=== PATIENT | female | born 1950 | race Caucasian/White ===

== ENCOUNTER 2018-06-23 13:49 | Outpatient (CLI) | payer MEDICARE ==
--- NOTE | 2018-06-23 15:01 | RAD ---
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 Baseline evaluation of lungs prior to new medic ation use. FINDINGS: There is no air space density, pulmonary edema, pleural effusion, pneumothorax, or cardiomegaly. IMPRESSION: No acute cardiopulmonary findings. jn POS: [facility]
--- NOTE | 2018-06-23 15:24 | BD ---
DEXA BONE DENSITOMETRY: (Dual energy X-ray Absorptiometry) DATE: 06/23/2018. HISTORY: A 67-year-old postmenopausal white female for baseline, age-related osteoporosis screening examinatio n. Height 67 inches. Weight 230 pounds. Age of menopause 39 years. COMPARISON: None available. FINDINGS: The bone mineral density (BMD) is given in grams per square centimeter (g/cm2): LUMBAR SPINE: BMD(g/cm2) T-score Z-score L1: 1.199 1.9 3.7 L2: 1.171 1.3 3.2 L3: 1.162 0.7 2.9 L4: 1.030 -0.3 1.9 Total: 1.141 0.9 2.9 HIP: Femoral neck: 0.894 0.4 2.2 Total: 1.090 1.2 2.7 IMPRESSION: 1) The mean bone mineral density of the lumbar spine is normal. Fracture risk is not increased. 2) The bone mineral density of the femoral neck is normal. Fracture risk is not increased. JN [place] POS: [facility]
== END 2018-06-23 13:50 | disposition home or self-care (01) ==
LOC: BICMAMMO 13:49
PROVIDERS: ATTEND Family Medicine
DX: Z12.31 Encounter for screening mammogram for malignant neoplasm of breast (principal); M81.0 Age-related osteoporosis without current pathological fracture; L40.50 Arthropathic psoriasis, unspecified
CPT/HCPCS: 71046; 77063; 77067; 77080

== ENCOUNTER 2018-07-16 15:04 | Outpatient (CLI) | payer MEDICARE ==
--- NOTE | 2018-07-16 16:48 | MRI ---
MRI ABDOMEN WITH AND WITHOUT CONTRAST: 07/16/18 HISTORY: K74.60 - unspecific cirrhosis of the liver. COMPARISON: MRI 09/18/16. FINDINGS: There is dilatation of the esophagus. There is a large seroma/hematoma of the anterior abdominal wall likely from prior ventral hernia repair. This collection does have some intrinsic internal T2 signal hyperintensity suggesting old hematoma with retracting clot along the periphery. This is increased i n size from the comparison exam. It measures approximately 1.5 x 3.5 x 8 cm. This is only minimally i ncreased in size dating back to 2016. No significant hepatic steatosis. No arterial hyperenhancing mass of the liver. Spleen and pancreas a re unremarkable. Aortic contour is nonaneurysmal. There are renal cysts, small, bilaterally. Left crista al AML is similar. There are moderately advanced degenerative changes throughout the thoracolumbar spine. There is no intrahepatic or extrahepatic biliary dilatation. No retroperitoneal adenopathy. IMPRESSION: No evidence for an abnormal enhancing mass of the liver. POS: [facility]
== END 2018-07-16 15:05 | disposition home or self-care (01) ==
LOC: BICMRI 15:04
PROVIDERS: ATTEND Internal Medicine Gastroenterology
DX: K74.60 Unspecified cirrhosis of liver (principal); R76.8 Other specified abnormal immunological findings in serum
CPT/HCPCS: 74183; 82565

== ENCOUNTER 2019-09-23 11:58 | Outpatient (CLI) | payer MEDICARE ==
--- NOTE | 2019-09-23 13:49 | MRI ---
MR the abdomen with and without IV contrast INDICATION: History of cirrhosis and hepatitis C COMPARISON: MR of the abdomen with and without contrast dated July 16, 2018 TECHNIQUE: Coronal T2, axial T2 fat sat, in and out of phase axial T1, axial FASE and dynamic pre and postcontrast images in the axial plane were obtained of the abdomen. A delayed phase coronal T1 fat sat series was also performed. 19 cc of MultiHance was utilized for the exam. FINDINGS: Liver: No abnormal arterial enhancing lesion is identified. No signal dropout is seen on the in and o ut of phase images to suggest hepatic steatosis. Gallbladder: Surgically absent Pancreas: Normal appearing. Adrenal glands: Normal appearing. Spleen: Normal in size measuring 11.7 cm in length. Kidneys: Stable left renal angiomyolipoma and bilateral renal cysts. Retroperitoneum: Mild hiatal hernia. No enlarged lymph nodes Bone: No suspicious marrow signal abnormality is evident. Lung bases: No pleural effusion. Abdominal wall: Stable anterior abdominal wall seroma. Stable umbilical hernia containing unobstructe d loops of small bowel. IMPRESSION: 1. No suspicious arterially enhancing lesion involving the liver.
[2019-09-23] MEDS ORDERED: Magnevist 469MG/ML 20 ML VIAL ONE (14:41)
== END 2019-09-23 11:59 | disposition home or self-care (01) ==
LOC: BICMRI 11:58
PROVIDERS: ATTEND Internal Medicine Gastroenterology
DX: K74.60 Unspecified cirrhosis of liver (principal)
CPT/HCPCS: 74183; 82565; A9579

== ENCOUNTER 2020-05-04 09:17 | Outpatient (CLI) | payer MEDICARE ==
--- NOTE | 2020-05-04 12:36 | MMO ---
Bilateral MAMMO Bilat Screen [facility]. CLINICAL HISTORY: Patient is 69 years old and is seen for screening. The patient has no family history of breast cancer. The patient has no personal history of cancer. VIEWS: The views performed were: bilateral craniocaudal with tomosynthesis and bilateral mediolateral oblique with tomosynthesis. FILMS COMPARED: The present examination has been compared to prior imaging studies performed at [facility] on 04/16/2013, 05/09/2014, 03/18/2016 and 06/23/2018. This study has been interpreted with the assistance of computer-aided detection. MAMMOGRAM FINDINGS: The breasts are almost entirely fat. There are stable benign appearing calcifications seen in both breasts. There are no suspicious masses, suspicious calcifications, or new areas of architectural distortion. IMPRESSION: THERE IS NO MAMMOGRAPHIC EVIDENCE OF MALIGNANCY. A ROUTINE FOLLOW-UP MAMMOGRAM IN 1 YEAR IS RECOMMENDED. THE RESULTS OF THIS EXAM WERE SENT TO THE PATIENT. ACR BI-RADS Category 2 - Benign finding MAMMOGRAPHY NOTE: 1. A negative mammogram report should not delay a biopsy if a dominant of clinically suspicious mass is present. 2. Approximately 10% to 15% of breast cancers are not detected by mammography. 3. Adenosis and dense breasts may obscure an underlying neoplasm. Reported by: ROBERTA FONTAINE MD Electonically Signed: [id number]
--- NOTE | 2020-05-04 14:26 | MRI ---
MRI ABDOMEN WITH AND WITHOUT IV CONTRAST: 05/04/20 HISTORY: Cirrhosis of the liver. COMPARISON: 09/23/19. FINDINGS: No significant hepatic steatosis or enhancing hepatic mass is seen. No abnormal biliary ductal dilata tion is noted. The patient is post cholecystectomy. The spleen, pancreas and adrenal glands are normal. Bilateral renal cysts and the left renal angiomyo lipoma are stable. No free fluid or lymphadenopathy seen. The aorta is normal caliber. The bone marrow signal is normal. The anterior abdominal wall seroma and abdominal hernia containing unobstructed loops of small bowel are stable. IMPRESSION: No evidence of hyperenhancing liver mass to suggest HCC. LIRADS 1. POS: [facility]
[2020-05-04] MEDS ORDERED: Magnevist 469MG/ML 20 ML VIAL ONE (14:48)
[2020-05-05 11:06] LABS: Estimated GFR-MDRD - POC Greater than 90
== END 2020-05-04 09:18 | disposition home or self-care (01) ==
LOC: BICMRI 09:17
PROVIDERS: ATTEND Internal Medicine Gastroenterology
DX: Z12.31 Encounter for screening mammogram for malignant neoplasm of breast (principal); K74.60 Unspecified cirrhosis of liver
CPT/HCPCS: 74183; 77063; 77067; 82565; A9579

== ENCOUNTER 2023-07-30 11:52 | Inpatient (IN) | payer OTHER, MEDICARE ==
[~2023-07-30 11:52] MED LIST: Iopamidol-370 76% 500 ML MDV (1 ML CHARGE) ONE
[2023-07-30 12:30] LABS: #Eosinphils 0.1 thou/uL (0.0-0.7); #Monocytes 0.5 thou/uL (0.11-0.59); %Basophils 0.2 % (0.0-1.0); %Eosinophils 2.2 % (0.0-10.0); %Lymphocytes 28.9 % (21.0-51.0); %Monocytes 9.4 % (0.0-10.0); %Neutrophils 58.9 % (42.0-75.0); Hematocrit 37.1 % (36.0-47.0); Hemoglobin 12.6 g/dL (12.0-16.0); Mean Corpuscular Hemoglobin 31.4 pg (27.0-31.0); Mean Corpuscular Volume 92.5 fl (78.0-98.0); Platelet Count 144 10x3/uL (130-400); RBC Distribution Width 11.9 % (11.5-14.5); Red Blood Cell (RBC) Count 4.01 mill/uL (4.20-5.40)
[2023-07-30 12:53] LABS: ALT (SGPT) 13 U/L (8-55); AST (SGOT) 14 U/L (5-34); Albumin 3.4 g/dL (3.4-4.8); Alkaline Phosphatase 57 U/L (40-110); Anion Gap 14 mmol/L (10-20); BUN (Urea Nitrogen) 19 mg/dL (9.8-20.1); Bilirubin, Total 0.6 mg/dL (0.2-1.2); CK (CPK) 34 U/L (29-168); Calc. Creatinine Clearance 0 mL/min (70-130); Calcium 9.1 mg/dL (7.8-10.44); Carbon Dioxide 24 mmol/L (23-31); Chloride 100 mmol/L (98-107); Estimated GFR 81; Globulin 2.8 g/dL (2.4-3.5); Glucose 219 mg/dL (83-110); Lipase 25 U/L (8-78); Protein, Total 6.2 g/dL (5.8-8.1); Sodium 134 mmol/L (136-145)
[2023-07-30 12:56] LABS: Troponin I Less than 0.010 ng/mL (< 0.028)
[2023-07-30] MEDS ORDERED: Calcium Carbonate 500 MG ChewTAB PO PRN (14:10)
[2023-07-30] MEDS ORDERED: Ondansetron ODT 4 MG TAB PO PRN (14:10)
[2023-07-30] MEDS ORDERED: Acetaminophen 325 MG TAB PO PRN (14:10)
[2023-07-30] MEDS ORDERED: Dextrose 50% Abboject 50 ML SYRINGE SLOW IVP PRN (14:19)
[2023-07-30] MEDS ORDERED: Glucagon 1 MG/ML KIT IM PRN (14:19)
[2023-07-30] MEDS ORDERED: Dextrose 5% in Water 1,000 ML IV PRN (14:19)
[2023-07-30] MEDS ORDERED: Lactated Ringer's 1,000 ML IV SCH (14:30)
[2023-07-30 14:37] LABS: Hemoglobin A1c 7.9 % (4.0-6.0)
[2023-07-30] MEDS ORDERED: Aspirin Chewable 81 MG TAB ONE (15:26)
[2023-07-30 17:30] VITALS: BMI 30.2
[2023-07-30] MEDS: metFORMIN 500 MG TAB PO SCH (18:03)
[2023-07-30] MEDS: Carvedilol 6.25 MG TAB PO SCH (18:04)
[2023-07-30] MEDS: Venlafaxine HCl XR 75 MG CAP PO SCH (20:59)
[2023-07-30] MEDS: Famotidine 20 MG TAB PO SCH (20:59)
[2023-07-30] MEDS ORDERED: Atorvastatin Calcium 10 MG TAB PO SCH (21:00)
[2023-07-30] MEDS: Melatonin 3 MG TAB PO SCH (21:00)
[2023-07-30] MEDS: ALPRAZolam 0.5 MG TAB PO PRN (21:02)
[2023-07-30] MEDS ORDERED: Senokot 8.6 MG TAB PO PRN (23:14)
[2023-07-31 05:19] LABS: #Eosinphils 0.1 thou/uL (0.0-0.7); #Monocytes 0.4 thou/uL (0.11-0.59); #Neutrophils 2.9 thou/uL (1.40-6.50); %Basophils 0.2 % (0.0-1.0); %Eosinophils 2.5 % (0.0-10.0); %Monocytes 8.2 % (0.0-10.0); %Neutrophils 59.7 % (42.0-75.0); Hematocrit 38.1 % (36.0-47.0); Hemoglobin 12.9 g/dL (12.0-16.0); Mean Corpuscular HGB CONC 33.9 g/dL (32.0-36.0); Mean Corpuscular Hemoglobin 31.3 pg (27.0-31.0); Mean Corpuscular Volume 92.5 fl (78.0-98.0); Mean Platelet Volume 10.3 fL (7.4-10.4); Platelet Count 148 10x3/uL (130-400); RBC Distribution Width 11.9 % (11.5-14.5); Red Blood Cell (RBC) Count 4.12 mill/uL (4.20-5.40); White Blood Cell (WBC) Count 4.9 10x3/uL (4.8-10.8)
[2023-07-31 05:48] LABS: Anion Gap 13 mmol/L (10-20); BUN (Urea Nitrogen) 12 mg/dL (9.8-20.1); Calc. Creatinine Clearance 99 mL/min (70-130); Carbon Dioxide 25 mmol/L (23-31); Chloride 105 mmol/L (98-107); Potassium 3.9 mmol/L (3.5-5.1); Sodium 139 mmol/L (136-145)
[2023-07-31 05:49] LABS: Calcium 9.1 mg/dL (7.8-10.44); Estimated GFR 89; Glucose 142 mg/dL (83-110)
[2023-07-31] MEDS: Levothyroxine Sodium 25 MCG TAB PO SCH (05:52)
[2023-07-31] MEDS ORDERED: hydrALAZINE 20 MG/ML VIAL SLOW IVP PRN ×2 (07:22→08:20)
[2023-07-31] MEDS ORDERED: Labetalol HCl 100 MG/20 ML VIAL SLOW IVP PRN ×2 (07:22→08:21)
[2023-07-31] MEDS ORDERED: Benzonatate 100 MG CAP PO PRN (07:25)
[2023-07-31] MEDS ORDERED: Benzocaine/Menthol 1 LOZ LOZ PO PRN (07:25)
[2023-07-31] MEDS ORDERED: Senokot S 8.6-50 MG TAB PO PRN (07:25)
[2023-07-31] MEDS ORDERED: Sodium Chloride 0.65% Nasal 44 ML BOT EA NARE PRN (07:25)
[2023-07-31] MEDS ORDERED: Loratadine 10 MG TAB PO PRN (07:25)
[2023-07-31] MEDS ORDERED: Artificial Tear Sol 15 ML BOT EA EYE PRN (07:25)
[2023-07-31] MEDS ORDERED: Moisturizing Cream (Eucerin) 113 GM JAR TOP PRN (07:25)
[2023-07-31] MEDS ORDERED: Bisacodyl 5 MG TAB PO PRN (07:25)
[2023-07-31] MEDS ORDERED: Carvedilol 25 MG TAB PO SCH (08:21)
[2023-07-31] MEDS ORDERED: Carvedilol 6.25 MG TAB PO SCH (08:30)
[2023-07-31] MEDS ORDERED: Isosorbide Mononitrate 60 MG ER.TAB PO SCH (09:00)
[2023-07-31] MEDS ORDERED: Apremilast [Otezla] 30 MG Tablet PO SCH (09:00)
[2023-07-31] MEDS ORDERED: Losartan 25 MG TAB PO SCH (09:00)
[2023-07-31] MEDS: Venlafaxine HCl XR 150 MG CAP PO SCH (09:08)
[2023-07-31] MEDS: Famotidine 20 MG TAB PO SCH ×2 (09:08→20:34)
[2023-07-31] MEDS: metFORMIN 500 MG TAB PO SCH (09:08)
[2023-07-31] MEDS: Carvedilol 6.25 MG TAB PO SCH (09:09)
[2023-07-31] MEDS: Enoxaparin 40 MG (0.4 mL) SYRINGE SC SCH (09:09)
[2023-07-31] MEDS: Aspirin 81 mg Enteric Coated Tablet PO SCH (09:09)
[2023-07-31] MEDS: Carvedilol 25 MG TAB PO SCH (17:20)
[2023-07-31] MEDS: Melatonin 3 MG TAB PO SCH (20:33)
[2023-07-31] MEDS: Venlafaxine HCl XR 75 MG CAP PO SCH (20:33)
[2023-07-31] MEDS: Atorvastatin Calcium 10 MG TAB PO SCH (20:34)
[2023-07-31] MEDS: ALPRAZolam 0.5 MG TAB PO PRN (20:39)
[2023-08-01 04:01] LABS: #Eosinphils 0.1 thou/uL (0.0-0.7); #Monocytes 0.5 thou/uL (0.11-0.59); #Neutrophils 4.3 thou/uL (1.40-6.50); %Basophils 0.3 % (0.0-1.0); %Eosinophils 1.7 % (0.0-10.0); %Lymphocytes 22.2 % (21.0-51.0); %Monocytes 8.3 % (0.0-10.0); %Neutrophils 67.2 % (42.0-75.0); Hematocrit 36.3 % (36.0-47.0); Hemoglobin 12.1 g/dL (12.0-16.0); Mean Corpuscular HGB CONC 33.3 g/dL (32.0-36.0); Mean Corpuscular Hemoglobin 30.8 pg (27.0-31.0); Mean Corpuscular Volume 92.4 fl (78.0-98.0); Mean Platelet Volume 10.1 fL (7.4-10.4); Platelet Count 147 10x3/uL (130-400); RBC Distribution Width 11.8 % (11.5-14.5); Red Blood Cell (RBC) Count 3.93 mill/uL (4.20-5.40); White Blood Cell (WBC) Count 6.4 10x3/uL (4.8-10.8)
[2023-08-01 04:16] LABS: Anion Gap 12 mmol/L (10-20); BUN (Urea Nitrogen) 20 mg/dL (9.8-20.1); Calc. Creatinine Clearance 93 mL/min (70-130); Calcium 9.1 mg/dL (7.8-10.44); Carbon Dioxide 26 mmol/L (23-31); Cardiac Risk 2.9 (Less than 4.5); Chloride 102 mmol/L (98-107); Cholesterol 144 mg/dl (< 200 Desired); Estimated GFR 82; Glucose 197 mg/dL (83-110); HDL Cholesterol 49 mg/dL (>60 Neg Risk); LDL Cholesterol, Calculated 72 mg/dL; Potassium 3.9 mmol/L (3.5-5.1); Sodium 136 mmol/L (136-145); Triglycerides 116 mg/dL (Less than 150)
[2023-08-01] MEDS ORDERED: Labetalol HCl 100 MG/20 ML VIAL SLOW IVP PRN (06:01)
[2023-08-01] MEDS ORDERED: hydrALAZINE 20 MG/ML VIAL SLOW IVP PRN (06:01)
[2023-08-01] MEDS: Levothyroxine Sodium 25 MCG TAB PO SCH (06:11)
[2023-08-01] MEDS ORDERED: Senokot S 8.6-50 MG TAB PO PRN (07:45)
[2023-08-01] MEDS: Enoxaparin 40 MG (0.4 mL) SYRINGE SC SCH (08:37)
[2023-08-01] MEDS: Famotidine 20 MG TAB PO SCH ×2 (08:37→19:54)
[2023-08-01] MEDS: Venlafaxine HCl XR 150 MG CAP PO SCH (08:38)
[2023-08-01] MEDS: Losartan 25 MG TAB PO SCH (08:38)
[2023-08-01] MEDS: Aspirin 81 mg Enteric Coated Tablet PO SCH (08:39)
[2023-08-01] MEDS: Carvedilol 25 MG TAB PO SCH ×2 (08:39→18:38)
[2023-08-01] MEDS: Isosorbide Mononitrate 30 MG ER.TAB PO SCH (08:41)
[2023-08-01 16:52] LABS: #Eosinphils 0.1 thou/uL (0.0-0.7); #Monocytes 0.5 thou/uL (0.11-0.59); #Neutrophils 4.9 thou/uL (1.40-6.50); %Basophils 0.3 % (0.0-1.0); %Eosinophils 1.8 % (0.0-10.0); %Lymphocytes 21.3 % (21.0-51.0); %Monocytes 6.9 % (0.0-10.0); %Neutrophils 69.1 % (42.0-75.0); Hematocrit 38.7 % (36.0-47.0); Mean Corpuscular HGB CONC 33.6 g/dL (32.0-36.0); Mean Corpuscular Hemoglobin 31.4 pg (27.0-31.0); Mean Corpuscular Volume 93.5 fl (78.0-98.0); Mean Platelet Volume 10.1 fL (7.4-10.4); Platelet Count 160 10x3/uL (130-400); RBC Distribution Width 11.9 % (11.5-14.5); Red Blood Cell (RBC) Count 4.14 mill/uL (4.20-5.40); White Blood Cell (WBC) Count 7.1 10x3/uL (4.8-10.8)
[2023-08-01 17:14] LABS: Anion Gap 12 mmol/L (10-20); BUN (Urea Nitrogen) 17 mg/dL (9.8-20.1); Calc. Creatinine Clearance 86 mL/min (70-130); Calcium 9.5 mg/dL (7.8-10.44); Carbon Dioxide 28 mmol/L (23-31); Chloride 101 mmol/L (98-107); Estimated GFR 75; Glucose 234 mg/dL (83-110); Potassium 4.5 mmol/L (3.5-5.1); Sodium 136 mmol/L (136-145)
[2023-08-01] MEDS: Melatonin 3 MG TAB PO SCH (19:54)
[2023-08-01] MEDS: Atorvastatin Calcium 10 MG TAB PO SCH (19:54)
[2023-08-01] MEDS: Venlafaxine HCl XR 75 MG CAP PO SCH (19:54)
[2023-08-01] MEDS: ALPRAZolam 0.5 MG TAB PO PRN (19:59)
[2023-08-01] MEDS: HumaLOG 300 UNITS/3 ML VIAL SC PRN (20:33)
[2023-08-02] MEDS: Levothyroxine Sodium 25 MCG TAB PO SCH (06:10)
[2023-08-02] MEDS: HumaLOG 300 UNITS/3 ML VIAL SC PRN ×2 (06:10→20:41)
[2023-08-02] MEDS: Venlafaxine HCl XR 150 MG CAP PO SCH (08:55)
[2023-08-02] MEDS: Carvedilol 25 MG TAB PO SCH ×2 (08:55→17:56)
[2023-08-02] MEDS: Aspirin 81 mg Enteric Coated Tablet PO SCH (08:55)
[2023-08-02] MEDS: Famotidine 20 MG TAB PO SCH ×2 (08:55→20:40)
[2023-08-02] MEDS: Losartan 25 MG TAB PO SCH (08:55)
[2023-08-02] MEDS: Isosorbide Mononitrate 30 MG ER.TAB PO SCH (08:55)
[2023-08-02] MEDS: Enoxaparin 40 MG (0.4 mL) SYRINGE SC SCH (08:56)
[2023-08-02] MEDS: Melatonin 3 MG TAB PO SCH (20:41)
[2023-08-02] MEDS: Atorvastatin Calcium 10 MG TAB PO SCH (20:41)
[2023-08-02] MEDS: Venlafaxine HCl XR 75 MG CAP PO SCH (20:42)
[2023-08-02] MEDS: ALPRAZolam 0.5 MG TAB PO PRN (20:45)
[2023-08-03 05:04] LABS: #Eosinphils 0.2 thou/uL (0.0-0.7); #Monocytes 0.5 thou/uL (0.11-0.59); #Neutrophils 3.5 thou/uL (1.40-6.50); %Basophils 0.4 % (0.0-1.0); %Eosinophils 2.6 % (0.0-10.0); %Monocytes 8.1 % (0.0-10.0); %Neutrophils 61.5 % (42.0-75.0); Hematocrit 38.5 % (36.0-47.0); Hemoglobin 13.2 g/dL (12.0-16.0); Mean Corpuscular HGB CONC 34.3 g/dL (32.0-36.0); Mean Corpuscular Hemoglobin 31.5 pg (27.0-31.0); Mean Corpuscular Volume 91.9 fl (78.0-98.0); Mean Platelet Volume 10.4 fL (7.4-10.4); Platelet Count 154 10x3/uL (130-400); RBC Distribution Width 11.9 % (11.5-14.5); Red Blood Cell (RBC) Count 4.19 mill/uL (4.20-5.40); White Blood Cell (WBC) Count 5.7 10x3/uL (4.8-10.8)
[2023-08-03 05:26] LABS: Anion Gap 11 mmol/L (10-20); BUN (Urea Nitrogen) 15 mg/dL (9.8-20.1); Calc. Creatinine Clearance 98 mL/min (70-130); Calcium 9.2 mg/dL (7.8-10.44); Carbon Dioxide 27 mmol/L (23-31); Chloride 102 mmol/L (98-107); Estimated GFR 88; Glucose 197 mg/dL (83-110); Potassium 4.2 mmol/L (3.5-5.1); Sodium 136 mmol/L (136-145)
[2023-08-03] MEDS: Levothyroxine Sodium 25 MCG TAB PO SCH (06:16)
[2023-08-03] MEDS: HumaLOG 300 UNITS/3 ML VIAL SC PRN (06:16)
[2023-08-03] MEDS: Isosorbide Mononitrate 30 MG ER.TAB PO SCH (09:35)
[2023-08-03] MEDS: Aspirin 81 mg Enteric Coated Tablet PO SCH (09:35)
[2023-08-03] MEDS: Losartan 25 MG TAB PO SCH (09:35)
[2023-08-03] MEDS: Famotidine 20 MG TAB PO SCH (09:35)
[2023-08-03] MEDS: Venlafaxine HCl XR 150 MG CAP PO SCH (09:35)
[2023-08-03] MEDS: Carvedilol 25 MG TAB PO SCH (09:36)
[2023-08-03] MEDS: Enoxaparin 40 MG (0.4 mL) SYRINGE SC SCH (09:36)
[2023-08-03 13:16] VITALS: TEMP 97.9
[2023-08-03 16:16] VITALS: BP 105/57
== END 2023-08-03 19:00 | disposition home or self-care (01) | DRG 91 ==
LOC: ERS 11:52 → 2SE 14:20
PROVIDERS: ADMIT Student in an Organized Health Care Education/Training Program; ATTEND Internal Medicine
DX: I97.820 Postprocedural cerebrovascular infarction following cardiac surgery (principal); I63.511 Cerebral infarction due to unspecified occlusion or stenosis of right middle cerebral artery; G81.94 Hemiplegia, unspecified affecting left nondominant side; I10 Essential (primary) hypertension; E78.5 Hyperlipidemia, unspecified; E11.9 Type 2 diabetes mellitus without complications; R29.810 Facial weakness; H53.8 Other visual disturbances; H53.2 Diplopia; E66.9 Obesity, unspecified; I25.10 Atherosclerotic heart disease of native coronary artery without angina pectoris; Y84.0 Cardiac catheterization as the cause of abnormal reaction of the patient, or of later complication, without mention of misadventure at the time of the procedure; Y92.238 Other place in hospital as the place of occurrence of the external cause; Z86.19 Personal history of other infectious and parasitic diseases; Z98.84 Bariatric surgery status; Z90.49 Acquired absence of other specified parts of digestive tract; Z88.1 Allergy status to other antibiotic agents; Z88.5 Allergy status to narcotic agent; Z79.85 Long-term (current) use of injectable non-insulin antidiabetic drugs; Z79.82 Long term (current) use of aspirin; Z79.899 Other long term (current) drug therapy; Z79.84 Long term (current) use of oral hypoglycemic drugs
CPT/HCPCS: 36415; 36416; 70450; 70496; 70498; 70551; 71045; 80048; 80053; 80061; 82550; 83036; 83690; 83880; 84484; 85025; 93005; 93306; J1650; J1815; J7120; Q9967

== ENCOUNTER 2023-08-11 07:30 | Inpatient (IN) | payer MEDICARE ==
[2023-08-13] MEDS ORDERED: EPINEPHrine 1 MG/ML VIAL ONE (06:39)
[2023-08-13] MEDS ORDERED: PHENYLEPHRINE-NS 100 MCG/ML 10 ML SYRINGE ONE ×2 (06:39→09:18)
[2023-08-13] MEDS ORDERED: Bupivacaine PF 0.5% 30 ML VIAL ONE (06:39)
[2023-08-13] MEDS ORDERED: Dexamethasone 4 mg/ml Vial ONE (06:39)
[2023-08-13] MEDS ORDERED: Albumin 5% 500 ML ONE (06:39)
[2023-08-13] MEDS ORDERED: Heparin 10,000 UNITS/1 ML VIAL 30,000 UNITS in Sodium Chloride 0.9% 1,000 ML FS SCH (06:45)
[2023-08-13] MEDS ORDERED: Lidocaine 1% MPF 2 ML VIAL ONE (06:51)
[2023-08-13] MEDS ORDERED: Sodium Chloride 0.9% 100 ML ONE (07:28)
[2023-08-13] MEDS ORDERED: CEFAZOLIN 2 GM VIAL ONE (07:28)
[2023-08-13] MEDS ORDERED: Fentanyl 250 MCG/5 ML VIAL ONE (07:38)
[2023-08-13] MEDS ORDERED: Midazolam HCl 5 mg/ml Vial ONE (07:39)
[2023-08-13] MEDS ORDERED: Protamine Sulfate 250 MG/25 ML VIAL ONE (07:50)
[2023-08-13] MEDS ORDERED: Aminocaproic Acid 5 GM/20 ML VIAL ONE ×2 (07:50→09:18)
[2023-08-13] MEDS ORDERED: Mannitol 12.5 GM/50 ML ONE (07:50)
[2023-08-13] MEDS ORDERED: Potassium Chloride 60 mEq (30 mL) VIAL ONE (07:50)
[2023-08-13] MEDS ORDERED: Thrombin 5000 UNITS/5 ML VIAL ONE (07:50)
[2023-08-13] MEDS ORDERED: Papaverine 60 MG/2 ML VIAL ONE (07:50)
[2023-08-13] MEDS ORDERED: Etomidate 40 MG (20 mL) VIAL ONE ×2 (07:50→09:18)
[2023-08-13] MEDS ORDERED: Heparin 5,000 UNITS/ML VIAL ONE (07:50)
[2023-08-13] MEDS ORDERED: Lidocaine 2% PF 100 mg/5 ml Syringe ONE (07:50)
[2023-08-13] MEDS ORDERED: Calcium Chloride 1 GM/10 ML Abboject SYRINGE ONE (07:50)
[2023-08-13] MEDS ORDERED: Cardioplegic Soln 1,000 ML BAG ONE (07:50)
[2023-08-13] MEDS ORDERED: Magnesium 5 GM/10 ML VIAL ONE (07:50)
[2023-08-13] MEDS ORDERED: Sodium Bicarb 50 mEq/50 ML VIAL ONE (07:50)
[2023-08-13] MEDS ORDERED: Vancomycin 1 GM VIAL ONE (07:50)
[2023-08-13] MEDS ORDERED: Heparin 30,000 units/30 ml VIAL ONE (07:50)
[2023-08-13] MEDS ORDERED: PROPOFOL 20 ML ONE (07:51)
[2023-08-13] MEDS ORDERED: ePHEDrine Sulfate 50 MG/10 ML VIAL ONE (08:02)
[2023-08-13] MEDS ORDERED: Insulin Regular 300 UNITS/3 ML VIAL ONE (09:11)
[2023-08-13] MEDS ORDERED: Rocuronium Bromide 10 MG/ML (10ML VIAL) ONE (09:18)
[2023-08-13] MEDS ORDERED: Norepinephrine 4 MG/4 ML VIAL ONE (09:18)
[2023-08-13] MEDS ORDERED: Magnesium 2 GM/50 ML(in water) 2 GM in Premix 1 BAG IVPB SCH (11:16)
[2023-08-13] MEDS ORDERED: Albumin 5% 12.5 GM (250 mL) BOT IVPB PRN ×2 (11:16)
[2023-08-13] MEDS ORDERED: D5 1/2 NS w/20 mEq KCL 1,000 ML IV SCH (11:16)
[2023-08-13] MEDS ORDERED: Post-Op Insulin Drip Protocol IVPB SCH (11:16)
[2023-08-13] MEDS ORDERED: Hetastarch 6% 500 ML 500 ML IVPB PRN (11:16)
[2023-08-13] MEDS ORDERED: Mag-Al 1200 mg/1200 mg/30 ML UDCUP PO PRN (11:16)
[2023-08-13] MEDS ORDERED: Ipratropium/Albuterol 3 ML NEB NEB PRN (11:16)
[2023-08-13] MEDS ORDERED: Nitroglycerin 50 MG/250 ML BOT 250 ML IVPB PRN (11:16)
[2023-08-13] MEDS ORDERED: NOREPINEPHRINE 8 MG/250 ML-D5W 250 ML IVPB PRN (11:16)
[2023-08-13] MEDS ORDERED: Guaifenesin DM 100-10/5 ML UDCUP PO PRN (11:16)
[2023-08-13] MEDS ORDERED: traMADol HCl 50 MG TAB PO PRN (11:16)
[2023-08-13] MEDS ORDERED: Bisacodyl 5 MG TAB PO PRN (11:16)
[2023-08-13] MEDS ORDERED: hydrALAZINE 20 MG/ML VIAL SLOW IVP PRN (11:16)
[2023-08-13] MEDS ORDERED: Bisacodyl 10 MG SUPP PR PRN (11:16)
[2023-08-13] MEDS ORDERED: fentaNYL 50 mcg/mL 1 mL Vial SLOW IVP PRN (11:16)
[2023-08-13 11:35] LABS: #Eosinphils 0.2 thou/uL (0.0-0.7); #Monocytes 0.5 thou/uL (0.11-0.59); #Neutrophils 7.1 thou/uL (1.40-6.50); %Basophils 0.3 % (0.0-1.0); %Eosinophils 1.8 % (0.0-10.0); %Lymphocytes 11.5 % (21.0-51.0); %Monocytes 5.2 % (0.0-10.0); %Neutrophils 80.5 % (42.0-75.0); Hematocrit 32.1 % (36.0-47.0); Hemoglobin 10.7 g/dL (12.0-16.0); Mean Corpuscular HGB CONC 33.3 g/dL (32.0-36.0); Mean Corpuscular Hemoglobin 31.8 pg (27.0-31.0); Mean Corpuscular Volume 95.5 fl (78.0-98.0); Mean Platelet Volume 10.6 fL (7.4-10.4); Platelet Count 112 10x3/uL (130-400); RBC Distribution Width 12.2 % (11.5-14.5); Red Blood Cell (RBC) Count 3.36 mill/uL (4.20-5.40); White Blood Cell (WBC) Count 8.8 10x3/uL (4.8-10.8)
[2023-08-13] MEDS: Ketorolac Tromethamine 30 MG (1 mL) VIAL IVP SCH ×3 (11:38→23:23)
[2023-08-13 11:42] VITALS: BMI 31.5
[2023-08-13 11:42] LABS: Actual Bicarbonate (HCO3a) 21.4 mEq/L (22-28); Base Excess (BEa) -3.3 mEq/L (-2.0 to +3.0); CO2 Tension 37.1 mmHg (35.0-45.0); Carboxyhemoglobin (COHb) 0.4 gm% (0.0-3.0); Hematocrit-ABG 33 % (36.0-47.0); Hemoglobin (Hb) 11.2 g/dL (12.0-16.0); O2 Tension (PaO2), arterial 168.4 mmHg (> 70.0); Potassium - ABG Lab 3.85 mmol/L (3.70-5.30); pH, Arterial 7.378 (7.35-7.45)
[2023-08-13 11:43] LABS: Puncture Site Arterial Line
[2023-08-13 11:44] LABS: ALV-art Gradient 213.025 mmHg (0-20)
[2023-08-13] MEDS ORDERED: Glucagon 1 MG/ML KIT SC PRN (11:45)
[2023-08-13] MEDS ORDERED: HUMULIN R 100 UNITS in Sodium Chloride 0.9% 100 ML IVPB SCH (11:45)
[2023-08-13] MEDS ORDERED: Insulin Regular 300 UNITS/3 ML VIAL SC PRN (11:45)
[2023-08-13] MEDS ORDERED: Dextrose 50% Abboject 50 ML SYRINGE SLOW IVP PRN (11:45)
[2023-08-13] MEDS ORDERED: Dextrose 5% in Water 1,000 ML IV PRN (11:45)
[2023-08-13 11:49] LABS: Anion Gap 12 mmol/L (10-20); BUN (Urea Nitrogen) 17 mg/dL (9.8-20.1); Calc. Creatinine Clearance 116 mL/min (70-130); Carbon Dioxide 19 mmol/L (23-31); Chloride 109 mmol/L (98-107); Estimated GFR 93; Glucose 181 mg/dL (83-110); Potassium 3.8 mmol/L (3.5-5.1); Sodium 136 mmol/L (136-145)
[2023-08-13] MEDS: Morphine 2 MG/ML VIAL SLOW IVP PRN ×3 (12:01→14:05)
[2023-08-13 12:07] LABS: INR-International Normal Ratio 1.5; Prothrombin Time 18.5 sec (12.0-14.7)
[2023-08-13 12:08] LABS: PTT 41.1 sec (22.9-36.1)
[2023-08-13 12:14] LABS: CellaVision Operator ID LAB.KW3; Platelet Adequacy Comment Platelets Decreased; Polychromasia SLIGHT = 2-3 cells HPF (0-2)
[2023-08-13] MEDS: Potassium Chloride 20 MEQ (100 mL) BAG IVPB PRN (12:16)
[2023-08-13 14:41] LABS: Actual Bicarbonate (HCO3a) 20.6 mEq/L (22-28); Base Excess (BEa) -4.4 mEq/L (-2.0 to +3.0); CO2 Tension 37.5 mmHg (35.0-45.0); Calcium, Ionized (arterial) 1.18 mmol/L (1.12-1.30); Carboxyhemoglobin (COHb) 0.6 gm% (0.0-3.0); Hematocrit-ABG 34 % (36.0-47.0); Hemoglobin (Hb) 11.5 g/dL (12.0-16.0); O2 Tension (PaO2), arterial 194.5 mmHg (> 70.0); Potassium - ABG Lab 4.12 mmol/L (3.70-5.30); pH, Arterial 7.358 (7.35-7.45)
[2023-08-13 14:47] LABS: ALV-art Gradient 43.825 mmHg (0-20); Puncture Site Arterial Line
[2023-08-13] MEDS: CEFAZOLIN 2 GM in Sodium Chloride 0.9% 100 ML IVPB SCH ×2 (15:16→23:23)
[2023-08-13 18:48] LABS: Hematocrit 33.4 % (36.0-47.0); Hemoglobin 11.4 g/dL (12.0-16.0)
[2023-08-13 19:13] LABS: Potassium 4.1 mmol/L (3.5-5.1)
[2023-08-13] MEDS ORDERED: Famotidine/PF 20 mg/2ml Vial SLOW IVP SCH (21:00)
[2023-08-13] MEDS ORDERED: UBIDECARENONE 30 MG PO SCH (21:00)
[2023-08-13] MEDS: Atorvastatin Calcium 10 MG TAB PO SCH (21:38)
[2023-08-13] MEDS: ALPRAZolam 0.5 MG TAB PO SCH (21:39)
[2023-08-13] MEDS: Venlafaxine HCl XR 75 MG CAP PO SCH (21:39)
[2023-08-13] MEDS: fentaNYL 50 mcg/mL 1 mL Vial SLOW IVP PRN (21:49)
[2023-08-14] MEDS: fentaNYL 50 mcg/mL 1 mL Vial SLOW IVP PRN ×3 (00:12→08:21)
[2023-08-14 04:31] LABS: #Monocytes 0.6 thou/uL (0.11-0.59); #Neutrophils 10.2 thou/uL (1.40-6.50); %Basophils 0.1 % (0.0-1.0); %Eosinophils 0.1 % (0.0-10.0); %Lymphocytes 6.6 % (21.0-51.0); %Monocytes 5.4 % (0.0-10.0); %Neutrophils 87.2 % (42.0-75.0); Hematocrit 34.6 % (36.0-47.0); Hemoglobin 11.6 g/dL (12.0-16.0); Mean Corpuscular HGB CONC 33.5 g/dL (32.0-36.0); Mean Corpuscular Hemoglobin 31.1 pg (27.0-31.0); Mean Corpuscular Volume 92.8 fl (78.0-98.0); Mean Platelet Volume 10.7 fL (7.4-10.4); Platelet Count 122 10x3/uL (130-400); RBC Distribution Width 12.5 % (11.5-14.5); Red Blood Cell (RBC) Count 3.73 mill/uL (4.20-5.40); White Blood Cell (WBC) Count 11.7 10x3/uL (4.8-10.8)
[2023-08-14 04:57] LABS: Anion Gap 8 mmol/L (10-20); BUN (Urea Nitrogen) 10 mg/dL (9.8-20.1); Calc. Creatinine Clearance 133 mL/min (70-130); Calcium 8.6 mg/dL (7.8-10.44); Carbon Dioxide 26 mmol/L (23-31); Chloride 106 mmol/L (98-107); Estimated GFR 96; Glucose 124 mg/dL (83-110); Potassium 3.9 mmol/L (3.5-5.1); Sodium 136 mmol/L (136-145)
[2023-08-14] MEDS: Levothyroxine Sodium 25 MCG TAB PO SCH (05:47)
[2023-08-14] MEDS: Ketorolac Tromethamine 30 MG (1 mL) VIAL IVP SCH ×3 (05:47→17:48)
[2023-08-14] MEDS ORDERED: Dextrose 5% in Water 1,000 ML IV PRN (05:54)
[2023-08-14] MEDS ORDERED: Glucagon 1 MG/ML KIT IM PRN (05:54)
[2023-08-14] MEDS ORDERED: Dextrose 50% Abboject 50 ML SYRINGE SLOW IVP PRN (05:54)
[2023-08-14] MEDS: Venlafaxine HCl XR 150 MG CAP PO SCH (08:20)
[2023-08-14] MEDS: Aspirin 325 MG TAB PO SCH (08:20)
[2023-08-14] MEDS: Potassium Chloride 20 MEQ (100 mL) BAG IVPB PRN (08:21)
[2023-08-14] MEDS: Magnesium 2 GM/50 ML(in water) 2 GM in Premix 1 BAG IVPB SCH (08:21)
[2023-08-14] MEDS: CEFAZOLIN 2 GM in Sodium Chloride 0.9% 100 ML IVPB SCH (08:21)
[2023-08-14] MEDS: OTEZLA 30 MG TABLET PO SCH (08:22)
[2023-08-14] MEDS ORDERED: Dulaglutide [Trulicity] 0.75 MG/0.5 ML Pen.Injctr SC SCH (09:00)
[2023-08-14] MEDS: Ondansetron PF 4 MG/2 ML Vial IVP PRN (09:59)
[2023-08-14] MEDS: traMADol HCl 50 MG TAB PO PRN (10:02)
[2023-08-14] MEDS ORDERED: Ketorolac Tromethamine 30 MG (1 mL) VIAL ONE (11:10)
[2023-08-14] MEDS: HumaLOG 300 UNITS/3 ML VIAL SC PRN ×3 (11:15→20:17)
[2023-08-14] MEDS ORDERED: Insulin Glargine 30 UNITS/0.3 ML VIAL SC PRN (11:31)
[2023-08-14] MEDS: Venlafaxine HCl XR 75 MG CAP PO SCH (20:12)
[2023-08-14] MEDS: ALPRAZolam 0.5 MG TAB PO SCH (20:12)
[2023-08-14] MEDS: Atorvastatin Calcium 10 MG TAB PO SCH (20:12)
[2023-08-15] MEDS: Ondansetron PF 4 MG/2 ML Vial IVP PRN ×2 (00:13→06:18)
[2023-08-15] MEDS: Ketorolac Tromethamine 30 MG (1 mL) VIAL IVP SCH ×5 (00:13→23:54)
[2023-08-15] MEDS: Levothyroxine Sodium 25 MCG TAB PO SCH (06:13)
[2023-08-15] MEDS: HumaLOG 300 UNITS/3 ML VIAL SC PRN ×2 (06:13→20:18)
[2023-08-15] MEDS: Aspirin 325 MG TAB PO SCH (08:25)
[2023-08-15] MEDS: Venlafaxine HCl XR 150 MG CAP PO SCH (08:26)
[2023-08-15] MEDS: Magnesium 2 GM/50 ML(in water) 2 GM in Premix 1 BAG IVPB SCH (08:26)
[2023-08-15] MEDS: OTEZLA 30 MG TABLET PO SCH (08:26)
[2023-08-15] MEDS ORDERED: Mag-Al 1200 mg/1200 mg/30 ML UDCUP PO PRN (10:24)
[2023-08-15] MEDS ORDERED: Bisacodyl 5 MG TAB PO PRN (10:24)
[2023-08-15] MEDS ORDERED: Zolpidem Tartrate 5 MG TAB PO PRN (10:24)
[2023-08-15] MEDS ORDERED: diphenhydrAMINE 25 MG CAP PO PRN (10:24)
[2023-08-15] MEDS ORDERED: Mineral Oil ENEMA PR PRN (10:24)
[2023-08-15] MEDS ORDERED: Milk Of Magnesia 30 ML UDCUP PO PRN (10:24)
[2023-08-15] MEDS ORDERED: Artificial Tear Sol 15 ML BOT EA EYE PRN (10:24)
[2023-08-15] MEDS ORDERED: Bisacodyl 10 MG SUPP PR PRN (10:24)
[2023-08-15] MEDS ORDERED: Nitroglycerin 0.4 MG TAB (25 Tab Bottle) SL PRN (10:24)
[2023-08-15] MEDS: Venlafaxine HCl XR 75 MG CAP PO SCH (20:05)
[2023-08-15] MEDS: ALPRAZolam 0.5 MG TAB PO SCH (20:05)
[2023-08-15] MEDS: Atorvastatin Calcium 10 MG TAB PO SCH (20:05)
[2023-08-15] MEDS: Acetaminophen 325 MG TAB PO PRN (21:35)
[2023-08-16] MEDS: Ketorolac Tromethamine 30 MG (1 mL) VIAL IVP SCH ×2 (06:23→10:59)
[2023-08-16] MEDS: HumaLOG 300 UNITS/3 ML VIAL SC PRN ×4 (06:24→22:29)
[2023-08-16] MEDS: Levothyroxine Sodium 25 MCG TAB PO SCH (06:24)
[2023-08-16] MEDS: Venlafaxine HCl XR 150 MG CAP PO SCH (08:33)
[2023-08-16] MEDS: Aspirin 325 mg Enteric Coated Tablet PO SCH (08:33)
[2023-08-16] MEDS: traMADol HCl 50 MG TAB PO PRN (08:36)
[2023-08-16] MEDS: OTEZLA 30 MG TABLET PO SCH (08:38)
[2023-08-16] MEDS ORDERED: Potassium Chloride 10 MEQ TAB PO SCH (10:00)
[2023-08-16] MEDS ORDERED: Furosemide 40 MG TAB PO SCH (10:00)
[2023-08-16] MEDS: ALPRAZolam 0.5 MG TAB PO SCH (21:38)
[2023-08-16] MEDS: Venlafaxine HCl XR 75 MG CAP PO SCH (21:38)
[2023-08-16] MEDS: Atorvastatin Calcium 10 MG TAB PO SCH (21:38)
[2023-08-16] MEDS: Guaifenesin DM 100-10/5 ML UDCUP PO PRN (21:38)
[2023-08-17] MEDS: Acetaminophen 325 MG TAB PO PRN ×2 (03:28→20:34)
[2023-08-17] MEDS: Levothyroxine Sodium 25 MCG TAB PO SCH (05:27)
[2023-08-17] MEDS: HumaLOG 300 UNITS/3 ML VIAL SC PRN ×3 (05:28→20:34)
[2023-08-17] MEDS ORDERED: Losartan 25 MG TAB PO SCH (09:00)
[2023-08-17] MEDS: Aspirin 325 mg Enteric Coated Tablet PO SCH (09:04)
[2023-08-17] MEDS: Potassium Chloride 10 MEQ TAB PO SCH (09:04)
[2023-08-17] MEDS: Venlafaxine HCl XR 150 MG CAP PO SCH (09:05)
[2023-08-17] MEDS: Furosemide 40 MG TAB PO SCH (09:05)
[2023-08-17] MEDS: OTEZLA 30 MG TABLET PO SCH (09:06)
[2023-08-17] MEDS: traMADol HCl 50 MG TAB PO PRN (15:13)
[2023-08-17] MEDS: Guaifenesin DM 100-10/5 ML UDCUP PO PRN ×2 (15:16→20:33)
[2023-08-17] MEDS: Atorvastatin Calcium 10 MG TAB PO SCH (20:34)
[2023-08-17] MEDS: Venlafaxine HCl XR 75 MG CAP PO SCH (20:34)
[2023-08-17] MEDS: ALPRAZolam 0.5 MG TAB PO SCH (20:34)
[2023-08-18] MEDS: Acetaminophen 325 MG TAB PO PRN ×2 (05:03→13:10)
[2023-08-18] MEDS: HumaLOG 300 UNITS/3 ML VIAL SC PRN (05:03)
[2023-08-18] MEDS: Levothyroxine Sodium 25 MCG TAB PO SCH (05:03)
[2023-08-18] MEDS ORDERED: Carvedilol 6.25 MG TAB PO SCH (07:15)
[2023-08-18] MEDS ORDERED: Losartan 25 MG TAB PO SCH (09:00)
[2023-08-18] MEDS: Furosemide 40 MG TAB PO SCH (09:10)
[2023-08-18] MEDS: OTEZLA 30 MG TABLET PO SCH (09:10)
[2023-08-18] MEDS: Potassium Chloride 10 MEQ TAB PO SCH (09:11)
[2023-08-18] MEDS: Venlafaxine HCl XR 150 MG CAP PO SCH (09:11)
[2023-08-18] MEDS: Aspirin 325 mg Enteric Coated Tablet PO SCH (09:12)
[2023-08-18] MEDS: traMADol HCl 50 MG TAB PO PRN (11:07)
[2023-08-18 11:39] VITALS: BP 139/64; TEMP 98.2
[2023-08-18] MEDS: Guaifenesin DM 100-10/5 ML UDCUP PO PRN (13:10)
== END 2023-08-18 15:45 | disposition home or self-care (01) | DRG 236 ==
LOC: SURG A 08-13 06:04 → CCU 08-13 11:10 → 2NO 08-16 03:08
PROVIDERS: ADMIT Thoracic Surgery (Cardiothoracic Vascular Surgery); ATTEND Thoracic Surgery (Cardiothoracic Vascular Surgery)
PROC: 02100Z9 Bypass Coronary Artery, One Artery from Left Internal Mammary, Open Approach (ICD-10-PCS; principal; 2023-08-14)
PROC: 021109W Bypass Coronary Artery, Two Arteries from Aorta with Autologous Venous Tissue, Open Approach (ICD-10-PCS; 2023-08-14)
PROC: 06BQ4ZZ Excision of Left Saphenous Vein, Percutaneous Endoscopic Approach (ICD-10-PCS; 2023-08-14)
PROC: 5A1221Z Performance of Cardiac Output, Continuous (ICD-10-PCS; 2023-08-14)
PROC: 02L70CK Occlusion of Left Atrial Appendage with Extraluminal Device, Open Approach (ICD-10-PCS; 2023-08-14)
PROC: 4A133R1 Monitoring of Arterial Saturation, Peripheral, Percutaneous Approach (ICD-10-PCS; 2023-08-14)
PROC: 30233J1 Transfusion of Nonautologous Serum Albumin into Peripheral Vein, Percutaneous Approach (ICD-10-PCS; 2023-08-14)
DX: I25.10 Atherosclerotic heart disease of native coronary artery without angina pectoris (principal); I10 Essential (primary) hypertension; E78.5 Hyperlipidemia, unspecified; E11.9 Type 2 diabetes mellitus without complications; B19.20 Unspecified viral hepatitis C without hepatic coma; M19.90 Unspecified osteoarthritis, unspecified site; Z90.49 Acquired absence of other specified parts of digestive tract; Z98.890 Other specified postprocedural states; Z90.710 Acquired absence of both cervix and uterus; Z88.1 Allergy status to other antibiotic agents; Z88.8 Allergy status to other drugs, medicaments and biological substances; Z88.5 Allergy status to narcotic agent; Z86.73 Personal history of transient ischemic attack (TIA), and cerebral infarction without residual deficits
CPT/HCPCS: 36416; 71045; 80048; 82805; 85025; 85610; 85730; 86850; 86900; 86901; 93005; 93010; 93798; 94002; A4311; C1751; J0171; J0665; J1100; J1642; J1644; J1815; J1885; J2001; J2150; J2250; J2272; J2405; J2440; J2704; J2720; J3010; J3370; J3475; J3480; J3490; P9045; S0017; S0028

== ENCOUNTER 2023-08-11 10:25 | Outpatient (CLI) | payer MEDICARE | END 2023-08-11 10:26 | disposition home or self-care (01) | LOC: LABBT 10:25 | PROVIDERS: ATTEND Thoracic Surgery (Cardiothoracic Vascular Surgery) | DX: Z01.812 Encounter for preprocedural laboratory examination (principal); I25.10 Atherosclerotic heart disease of native coronary artery without angina pectoris | CPT/HCPCS: 86850; 86900; 86901 ==

== ENCOUNTER 2024-05-25 08:48 | Outpatient (CLI) | payer MEDICARE | END 2024-05-25 08:49 | disposition home or self-care (01) | LOC: ULT 08:48 | PROVIDERS: ATTEND Internal Medicine Gastroenterology | DX: K74.60 Unspecified cirrhosis of liver (principal); R93.2 Abnormal findings on diagnostic imaging of liver and biliary tract; Z86.0100 Personal history of colon polyps, unspecified; R16.0 Hepatomegaly, not elsewhere classified | CPT/HCPCS: 76705 ==

== ENCOUNTER 2024-06-06 15:58 | Inpatient (IN) | payer MEDICARE ==
[~2024-06-06 15:58] MED LIST changes: +Iopamidol 370 76% 100 ML VIAL ONE
[2024-06-06] MEDS ORDERED: Ondansetron PF 4 MG/2 ML Vial ONE (16:10)
[2024-06-06] MEDS ORDERED: CEFAZOLIN 2 GM VIAL ONE (16:10)
[2024-06-06] MEDS ORDERED: Sodium Chloride 0.9% 100 ML ONE (16:11)
[2024-06-06 16:26] LABS: #Basophils 0.03 10x3/uL (0.0-0.2); %Basophils 0.2 % (0.0-1.0); %Eosinophils 0.5 % (0.0-10.0); %Monocytes 2.1 % (0.0-10.0); %Neutrophils 83.6 % (42.0-75.0); Hematocrit 36.6 % (36.0-47.0); Hemoglobin 12.6 g/dL (12.0-16.0); Mean Corpuscular HGB CONC 34.4 g/dL (32.0-36.0); Mean Corpuscular Hemoglobin 32.6 pg (27.0-31.0); Mean Corpuscular Volume 94.6 fL (78.0-98.0); Mean Platelet Volume 11.1 fL (7.4-10.4); Platelet Count 139 10x3/uL (130-400); RBC Distribution Width 12.2 % (11.5-14.5); Red Blood Cell (RBC) Count 3.87 mill/uL (4.20-5.40)
[2024-06-06 16:38] LABS: INR-International Normal Ratio 1.4; PTT 41.4 sec (22.9-36.1); Prothrombin Time 17.6 sec (12.0-14.7)
[2024-06-06 16:40] LABS: Alcohol Less than 10.0 mg/dL (Less than 10)
[2024-06-06 16:43] LABS: ALT (SGPT) 39 U/L (8-55); AST (SGOT) 59 U/L (5-34); Albumin 3.2 g/dL (3.4-4.8); Alkaline Phosphatase 67 U/L (40-110); Anion Gap 19 mmol/L (10-20); BUN (Urea Nitrogen) 22 mg/dL (9.8-20.1); Bilirubin, Total 0.9 mg/dL (0.2-1.2); Calc. Creatinine Clearance 0 mL/min (70-130); Carbon Dioxide 18 mmol/L (23-31); Chloride 105 mmol/L (98-107); Estimated GFR 68; Globulin 3.1 g/dL (2.4-3.5); Glucose 320 mg/dL (83-110); Lipase 29 U/L (8-78); Potassium 4.8 mmol/L (3.5-5.1); Protein, Total 6.3 g/dL (5.8-8.1); Sodium 137 mmol/L (136-145)
[2024-06-06 16:46] LABS: Troponin I Less than 0.010 ng/mL (< 0.028)
[2024-06-06] MEDS ORDERED: diphenhydrAMINE 50 MG/ML VIAL ONE (16:48)
[2024-06-06] MEDS ORDERED: Insulin Lispro 100 UNIT/ML 10 ML VIAL SC PRN (18:01)
[2024-06-06] MEDS ORDERED: hydrALAZINE 20 MG/ML VIAL SLOW IVP PRN (18:01)
[2024-06-06] MEDS ORDERED: Acetaminophen 325 MG TAB PO PRN (18:01)
[2024-06-06] MEDS ORDERED: Glucagon 1 MG/ML KIT IM PRN (18:01)
[2024-06-06] MEDS ORDERED: Ondansetron ODT 4 MG TAB PO PRN (18:01)
[2024-06-06] MEDS ORDERED: TETANUS, DIPHTHERIA TOX,ADULT (TDVAX) 0.5 ML VIAL IM ONE (18:01)
[2024-06-06] MEDS ORDERED: Ondansetron PF 4 MG/2 ML Vial IVP PRN (18:01)
[2024-06-06] MEDS ORDERED: Dextrose 50% Abboject 50 ML SYRINGE SLOW IVP PRN (18:01)
[2024-06-06] MEDS ORDERED: Dextrose 5% in Water 1,000 ML IV PRN (18:01)
[2024-06-06] MEDS ORDERED: NOREPINEPHRINE 8 MG/250 ML-D5W 250 ML IVPB SCH (19:15)
[2024-06-06] MEDS ORDERED: Lactated Ringer's 1,000 ML IV SCH (19:15)
[2024-06-06] MEDS ORDERED: Lactated Ringer's 500 ML IV SCH (19:45)
[2024-06-06] MEDS ORDERED: Vasopressin 20 UNITS in Sodium Chloride 0.9% 50 ML IV SCH (19:45)
[2024-06-06] MEDS ORDERED: Vasopressin In 0.9 % NaCl 40 UNIT in Premix 1 BAG IV SCH (19:45)
[2024-06-06 20:17] LABS: Hematocrit 21.2 % (36.0-47.0); Hemoglobin 6.7 g/dL (12.0-16.0); Mean Corpuscular HGB CONC 31.6 g/dL (32.0-36.0); Mean Corpuscular Hemoglobin 32.2 pg (27.0-31.0); Mean Corpuscular Volume 101.9 fL (78.0-98.0); Platelet Count 76 10x3/uL (130-400); RBC Distribution Width 13.3 % (11.5-14.5); Red Blood Cell (RBC) Count 2.08 mill/uL (4.20-5.40)
[2024-06-06 20:18] LABS: #Basophils Less than 0.03 10x3/uL (0.0-0.2); %Basophils 0.1 % (0.0-1.0); %Eosinophils 0.4 % (0.0-10.0); %Lymphocytes 15.4 % (21.0-51.0); %Monocytes 4.4 % (0.0-10.0); %Neutrophils 78.6 % (42.0-75.0)
[2024-06-06 20:35] LABS: Base Excess (BEa) -16.4 mEq/L (-2.0 to +3.0); CO2 Tension 43.7 mmHg (35.0-45.0); Carboxyhemoglobin (COHb) 1.7 gm% (0.0-3.0); Hematocrit-ABG 19 % (36.0-47.0); Hemoglobin (Hb) 6.3 g/dL (12.0-16.0); O2 Tension (PaO2), arterial 379.3 mmHg (> 70.0); Potassium - ABG Lab 4.62 mmol/L (3.70-5.30)
[2024-06-06 20:38] LABS: ALV-art Gradient 279.075 mmHg (0-20); Actual Bicarbonate (HCO3a) 12.4 mEq/L (22-28); Puncture Site Left Radial artery
[2024-06-06 20:40] LABS: Burr Cells SLIGHT = 2-5 cells HPF (0-1); Macrocytosis SLIGHT = 6-15 cells HPF (0-5); Platelet Adequacy Comment Platelets Decreased; Polychromasia SLIGHT = 2-3 cells HPF (0-2)
[2024-06-06 20:42] LABS: Anion Gap 20 mmol/L (10-20); BUN (Urea Nitrogen) 21 mg/dL (9.8-20.1); Calc. Creatinine Clearance 0 mL/min (70-130); Calcium 7.4 mg/dL (7.8-10.44); Carbon Dioxide 14 mmol/L (23-31); Chloride 111 mmol/L (98-107); Estimated GFR 84; Glucose 440 mg/dL (83-110); Magnesium 1.7 mg/dL (1.6-2.6); Potassium 5.5 mmol/L (3.5-5.1); Sodium 139 mmol/L (136-145)
[2024-06-06 20:45] LABS: INR-International Normal Ratio 2.4; PTT 62.5 sec (22.9-36.1); Prothrombin Time 26.2 sec (12.0-14.7)
[2024-06-06] MEDS ORDERED: EPINEPHrine 4 MG in Dextrose 5% in Water 250 ML IVP SCH (20:45)
[2024-06-06] MEDS: Insulin Regular, Human 100 UNIT/ML 10 ML VIAL ONE (20:49)
[2024-06-06] MEDS ORDERED: Heparin 10,000 UNITS/ 10 ML VIAL ONE (20:55)
[2024-06-06] MEDS ORDERED: Vasopressin 20 UNITS/ML VIAL ONE (20:58)
[2024-06-06] MEDS ORDERED: Albumin 5% 0 ML ONE (20:58)
[2024-06-06 21:33] LABS: Base Excess (BEa) -17.4 mEq/L (-2.0 to +3.0); CO2 Tension 58.1 mmHg (35.0-45.0); Carboxyhemoglobin (COHb) 0.8 gm% (0.0-3.0); Hematocrit-ABG 27 % (36.0-47.0); Hemoglobin (Hb) 9.2 g/dL (12.0-16.0); O2 Tension (PaO2), arterial 129.2 mmHg (> 70.0); Potassium - ABG Lab 4.22 mmol/L (3.70-5.30)
[2024-06-06 21:34] LABS: Actual Bicarbonate (HCO3a) 13.5 mEq/L (22-28); Calcium, Ionized (arterial) 2.25 mmol/L (1.12-1.30); pH, Arterial 6.983 (7.35-7.45)
[2024-06-06 21:35] LABS: ALV-art Gradient 511.175 mmHg (0-20); Puncture Site ART LINE
[2024-06-06] MEDS ORDERED: Sodium Bicarb 50 MEQ/50 ML Abboject 8.4% SYRINGE IVP SCH (21:45)
[2024-06-06] MEDS ORDERED: Sodium Bicarbonate 150 MEQ in Dextrose 5% in Water 1,000 ML IV SCH (21:45)
[2024-06-06] MEDS ORDERED: Calcium Chloride 1 GM/10 ML Abboject SYRINGE ONE (21:59)
[2024-06-06] MEDS ORDERED: EPINEPHrine 1 MG/10 ML Abboject SYRINGE ONE (22:05)
[2024-06-06 22:14] VITALS: BMI 30.9
[2024-06-07 03:12] VITALS: TEMP 98.5
== END 2024-06-06 22:10 | disposition expired | DRG 957 ==
LOC: ERS 15:58 → SDC/OP 17:17 → CCU 18:01
PROVIDERS: ADMIT Thoracic Surgery (Cardiothoracic Vascular Surgery); ATTEND Thoracic Surgery (Cardiothoracic Vascular Surgery)
PROC: 04LF3DZ Occlusion of Left Internal Iliac Artery with Intraluminal Device, Percutaneous Approach (ICD-10-PCS; principal; 2024-06-06)
PROC: 0W3G0ZZ Control Bleeding in Peritoneal Cavity, Open Approach (ICD-10-PCS; 2024-06-06)
PROC: 0BH17EZ Insertion of Endotracheal Airway into Trachea, Via Natural or Artificial Opening (ICD-10-PCS; 2024-06-06)
PROC: 02HV33Z Insertion of Infusion Device into Superior Vena Cava, Percutaneous Approach (ICD-10-PCS; 2024-06-06)
PROC: B548ZZA Ultrasonography of Superior Vena Cava, Guidance (ICD-10-PCS; 2024-06-06)
PROC: 03HY32Z Insertion of Monitoring Device into Upper Artery, Percutaneous Approach (ICD-10-PCS; 2024-06-06)
PROC: 4A133B1 Monitoring of Arterial Pressure, Peripheral, Percutaneous Approach (ICD-10-PCS; 2024-06-06)
PROC: 4A133J1 Monitoring of Arterial Pulse, Peripheral, Percutaneous Approach (ICD-10-PCS; 2024-06-06)
PROC: 5A12012 Performance of Cardiac Output, Single, Manual (ICD-10-PCS; 2024-06-06)
PROC: 30233N1 Transfusion of Nonautologous Red Blood Cells into Peripheral Vein, Percutaneous Approach (ICD-10-PCS; 2024-06-06)
PROC: 30233L1 Transfusion of Nonautologous Fresh Plasma into Peripheral Vein, Percutaneous Approach (ICD-10-PCS; 2024-06-06)
PROC: 30233M1 Transfusion of Nonautologous Plasma Cryoprecipitate into Peripheral Vein, Percutaneous Approach (ICD-10-PCS; 2024-06-06)
PROC: 30233K1 Transfusion of Nonautologous Frozen Plasma into Peripheral Vein, Percutaneous Approach (ICD-10-PCS; 2024-06-06)
PROC: 30233R1 Transfusion of Nonautologous Platelets into Peripheral Vein, Percutaneous Approach (ICD-10-PCS; 2024-06-06)
PROC: 6A551Z2 Pheresis of Platelets, Multiple (ICD-10-PCS; 2024-06-06)
PROC: 4A133R1 Monitoring of Arterial Saturation, Peripheral, Percutaneous Approach (ICD-10-PCS; 2024-06-06)
PROC: 3E03329 Introduction of Other Anti-infective into Peripheral Vein, Percutaneous Approach (ICD-10-PCS; 2024-06-06)
PROC: 3E04329 Introduction of Other Anti-infective into Central Vein, Percutaneous Approach (ICD-10-PCS; 2024-06-06)
PROC: 3E033XZ Introduction of Vasopressor into Peripheral Vein, Percutaneous Approach (ICD-10-PCS; 2024-06-06)
PROC: 3E043XZ Introduction of Vasopressor into Central Vein, Percutaneous Approach (ICD-10-PCS; 2024-06-06)
PROC: 30233J1 Transfusion of Nonautologous Serum Albumin into Peripheral Vein, Percutaneous Approach (ICD-10-PCS; 2024-06-06)
PROC: 30243J1 Transfusion of Nonautologous Serum Albumin into Central Vein, Percutaneous Approach (ICD-10-PCS; 2024-06-06)
DX: S06.6XAA Traumatic subarachnoid hemorrhage with loss of consciousness status unknown, initial encounter (principal); T79.4XXA Traumatic shock, initial encounter; S32.119A Unspecified Zone I fracture of sacrum, initial encounter for closed fracture; S32.010A Wedge compression fracture of first lumbar vertebra, initial encounter for closed fracture; S12.000A Unspecified displaced fracture of first cervical vertebra, initial encounter for closed fracture; S22.43XA Multiple fractures of ribs, bilateral, initial encounter for closed fracture; S12.100A Unspecified displaced fracture of second cervical vertebra, initial encounter for closed fracture; S22.040A Wedge compression fracture of fourth thoracic vertebra, initial encounter for closed fracture; S22.050A Wedge compression fracture of T5-T6 vertebra, initial encounter for closed fracture; S22.070A Wedge compression fracture of T9-T10 vertebra, initial encounter for closed fracture; S12.400A Unspecified displaced fracture of fifth cervical vertebra, initial encounter for closed fracture; S12.600A Unspecified displaced fracture of seventh cervical vertebra, initial encounter for closed fracture; E87.20 Acidosis, unspecified; I97.191 Other postprocedural cardiac functional disturbances following other surgery; S30.0XXA Contusion of lower back and pelvis, initial encounter; I49.01 Ventricular fibrillation; I46.9 Cardiac arrest, cause unspecified; S32.592A Other specified fracture of left pubis, initial encounter for closed fracture; R40.2142 Coma scale, eyes open, spontaneous, at arrival to emergency department; R40.2252 Coma scale, best verbal response, oriented, at arrival to emergency department; R40.2362 Coma scale, best motor response, obeys commands, at arrival to emergency department; I25.10 Atherosclerotic heart disease of native coronary artery without angina pectoris; I10 Essential (primary) hypertension; E11.9 Type 2 diabetes mellitus without complications; Z95.1 Presence of aortocoronary bypass graft; V49.9XXA Car occupant (driver) (passenger) injured in unspecified traffic accident, initial encounter; Z98.890 Other specified postprocedural states; Z98.84 Bariatric surgery status; Z88.1 Allergy status to other antibiotic agents; Z88.5 Allergy status to narcotic agent; Z88.8 Allergy status to other drugs, medicaments and biological substances; Z79.890 Hormone replacement therapy; Z79.899 Other long term (current) drug therapy; Z90.89 Acquired absence of other organs; Y93.I9 Activity, other involving external motion; Y92.89 Other specified places as the place of occurrence of the external cause
CPT/HCPCS: 36246; 36415; 36430; 36600; 37244; 61626; 70450; 70498; 71045; 71260; 72125; 72170; 74177; 75736; 80053; 80307; 82140; 82805; 83605; 83690; 83735; 84484; 85025; 85610; 85730; 86850; 86900; 86901; 93005; 94002; 94760; A4314; C1769; C1887; C1889; C1894; G0390; J0171; J1200; J1644; J1815; J2405; P9012; P9016; P9035; P9045; P9048; P9059; Q9967